=== PATIENT | male | born 1935 | race Caucasian/White ===

== ENCOUNTER 2017-12-01 13:41 | Emergency (ER) | payer MEDICARE ==
--- NOTE | 2017-12-01 14:19 | ED ---
Abdominal Pain/Male - HPI Summary HPI Summary: This is kraig Munoz documenting for attending Nika Duran M.D. This patient is an 82 year old M presenting to [facility] accompanied by Angela, his , with a chief complaint of chest pain for past 4 days. PMHx recently started doxycycline for Lyme disease, GERD. Meds: Rx omeprazole, allergy shots, doxycycline (started yesterday 11/30/17). Pt endorses suprapubic pain (3/10), left anterior CP at 9/10 when symptomatic (denies current sx), constipation, burping, nausea. He denies emesis, ability to pass flatus, and hematochezia. Flatus alleviates sx and inability aggravates. He notes that his CP, when present, is more painful than his abd pain. Pt notes his sx are worse at night. He notes noticed that his last BM small, virtually nothing this AM; his last real one 3 days ago. SHx hernia repairs, several: including inguinal and umbilical hernias. Pt stated he was supposed to have surgery for basal cell in right leg tomorrow but he postponed it. FHx CA. Pt was sent in by Dr. Roy, who called ahead with info, with concern for possible small bowel obstruction, which pt has had in the past due to his pain and inability to pass flatus. - History of Current Complaint Chief Complaint: EDAbdPain Stated Complaint: GI ISSUE Time Seen by Provider: 12/01/17 13:52 Hx Obtained From: Patient, Other: - Dr. Roy Onset/Duration: Sudden Onset, Lasting Days, Still Present Timing: Intermittent - Worse at night Severity Initially: Moderate Severity Currently: Mild Pain Intensity: 2 Pain Scale Used: 0-10 Numeric Location: Epigastric, Suprapubic Radiates: Yes Radiates to: Chest Character: Sharp Aggravating Factor(s): Other: - Night, inability to pass flatus. Alleviating Factor(s): Other: - day time, passing flatus Associated Signs And Symptoms: Positive: Chest Pain, Constipation, Nausea. 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,on doxycycline 11/2017 Endocrine/Hematology History: Denies: Hx Diabetes Cardiovascular History: Reports: Hx Angina, Hx Hypercholesterolemia Denies: Hx Coronary Artery Disease, Hx Hypertension, Hx Myocardial Infarction , Hx Valvular Heart Disease Respiratory History: Reports: Hx Seasonal Allergies Denies: Hx Asthma, Hx Chronic Obstructive Pulmonary Disease (COPD) GI History: Reports: Hx Gastroesophageal Reflux Disease - ON MEDICATION FOR Sensory History: Reports: Hx Cataracts, Hx Hearing Aid - BILATERAL Denies: Hx Contacts or Glasses, Hx Legally Blind, Hx Deafness Opthamlomology History: Reports: Hx Cataracts Denies: Hx Contacts or Glasses, Hx Legally Blind EENT History: Denies: Hx Deafness Psychiatric History: Denies: Hx Schizophrenia - Cancer History Cancer Type, Location and Year: Basal cell carcinoma R lower eyelid - Surgical History Surgery Procedure, Year, and Place: Basal cell carcinoma removed R lower eyelid 12/2006, reconstruction of moh eyelid defect with skin graft from neck 12/2006. HERNIA REPAIRS: inguinal and umbilical. 2 OTHER PROCEDURES FOR SQUAMOUS CELL CARCINOMA'S-OHIO Hx Anesthesia Reactions: No Infectious Disease History: Yes - Lyme disease Nov 2017 Infectious Disease History: Reports: History Other Infectious Disease - Lyme disease Denies: Traveled Outside the [place] in Last 30 Days - Family History Known Family History: Positive: Other - cancer - Social History Occupation: Retired Lives: With Family Alcohol Use: None Alcohol Amount: gave it up Substance Use Type: Reports: None Smoking Status (MU): Former Smoker Amount Used/How Often: X 5 YEARS Review of Systems Negative: Fever Positive: Chest Pain Respiratory: Negative Gastrointestinal: Other - (+) Burping Positive: Abdominal Pain, Nausea. Negative: Vomiting, Diarrhea, Other - neg melena,neg hematochezia Positive: no symptoms reported Positive: Other - basal cell right leg Neurological: Negative Psychological: Normal All Other Systems Reviewed And Are Negative: Yes Physical Exam - Summary Physical Exam Summary: Appearance: Well-appearing, no pain distress, well-nourished Skin: Warm, color reflects adequate perfusion, dry, skin lesion right lower leg and biopsy site of skin lesion Head: Normal Head/Face inspection, atraumatic Eyes: Conjunctiva clear ENT: Normal inspection Neck: Supple, no nodes, no JVD Respiratory: Lungs clear, normal breath sounds, no respiratory distress Cardio: RRR, No murmur, pulses normal, brisk capillary refill Abdomen: Soft, minimal diffuse tenderness, no masses, no guarding, no rebound Bowel sounds: distant but present Musculoskeletal: Strength Intact/ROM intact, no calf tenderness, no edema. 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 Triage Information Reviewed: Yes Vital Signs On Initial Exam: Initial Vitals Temp Pulse Resp BP Pulse Ox 97.5 F 81 16 125/56 100 12/01/17 13:50 12/01/17 13:50 12/01/17 13:50 12/01/17 13:50 12/01/17 13:50 Vital Signs Reviewed: Yes Diagnostics - Vital Signs Vital Signs Temp Pulse Resp BP Pulse Ox 12/01/17 14:07 81 99 12/01/17 14:05 77 136/63 97 12/01/17 13:50 97.5 F 81 16 125/56 100 - Laboratory Result Diagrams: 12/01/17 15:17 12/01/17 15:16 Lab Statement: Any lab studies that have been ordered have been reviewed, and results considered in the medical decision making process. - Radiology CXR Xray Interpretation: No Acute Changes Radiology Interpretation Completed By: Radiologist - Hyperinflation; no evidence for acute finding. - CT A/P CT Interpretation: Positive (See Comments) CT Interpretation Completed By: Radiologist - Bochdalek hernia of the right hemidiaphragm. No abnormal masses or fluid collections are noted. The prostate is enlarged. No definite bowel obstruction is noted. Dr. Duran has reviewed this report. - EKG 1437 Cardiac Rate: NL - 70 EKG Rhythm: 1st Degree HB ST Segment: Normal Ectopy: None EKG Interpretation: 1st degree AVB, RBBB, nl QTc, axis 33, no acute changes. EKG Comparison: No Significant Change - c/w 10/18/12 Re-Evaluation - Re-Evaluation First Eval Re-Evaluation Time: 17:40 Change: Unchanged Comment: no chest pain, no abd pain. not passing flatus. awaiting CT report. Second Eval Change: Improved Comment: Pt is pain free. No vomiting in the ED. Has not passed flatus. Given CT results including notification of Bochdalek hernia. Discussed and questions answered. Pt and agree to discharge. Abdominal Pain Fem Course/Dx - Course Course Of Treatment: 82 yo M on doxycycline for new diagnosis of Lyme disease presents with chest pain, abd pain, nausea, constipation and inability to pass flatus, for evaluation of possible small bowel obstruction, sent by Dr. Roy , who called ahead with information about the pt. EKG: nl sinus 70 BPM, 1st degree AVB, RBBB, axis 33, nl QTc, no acute changes, no change when c/w . CXR reveals hyperinflation; no evidence for acute finding. CT abdomen and pelvis with oral and IV contrast reveals a Bochdalek hernia of the right hemidiaphragm. No abnormal masses or fluid collections are noted. The prostate is enlarged. No definite bowel obstruction is noted. The Bochdalek hernia was discussed with Dr. Austin by phone and explained to pt and his . Pt had no vomiting in the ED, did not require pain medication, and had unchanged EKG and normal troponin, so was discharged for continued treatment of his Lyme disease as an outpatient and further evaluation of his symptoms as an outpatient by Dr. Roy. - Diagnoses Differential Diagnosis/HQI/PQRI: Abdominal Aortic Aneurysm, Bowel Obstruction, Constipation, Diverticulitis, Ischemic Bowel, Pneumonia, Urinary Tract Infection Provider Diagnoses: Chest pain, Abdominal pain, Lyme disease, Bochdalek hernia Discharge - Sign-Out/Discharge Documenting (check all that apply): Patient Departure - discharge - Discharge Plan Condition: Stable Disposition: HOME Patient Education Materials: Lyme Disease (ED), Abdominal Pain (ED) Referrals: Bunny Roy MD [Primary Care Provider] - 2 Days Additional Instructions: We have given you a copy of your labs and studies today. We did not diagnose a bowel obstruction. Dr. Austin the radiologist diagnosed a Bochdalek hernia, which has been present in the past, which is a diaphragmatic hernia with some fat in it, which he does not believe is clinically significant. Dr. Duran discussed this with him personally. That hernia is on the right side, so it does not explain your left chest discomfort. We did not see any sign of a heart attack based on your EKG and your troponin level. Dr. Duran feels it is safe to continue the doxycycline as directed. There was no hidden blood in your stool on a rectal exam. Follow up with Dr. Roy in 2 days. Return to the ER if you have any new or worsening symptoms. - Billing Disposition and Condition Condition: STABLE Disposition: Home
[2017-12-01] MEDS ORDERED: NS 0.9% 1000 ML* 1,000 ML IV ONE (14:26)
[2017-12-01 15:25] LABS: ABS Basophils 0.1 10^3/ul (0-0.2); ABS Eosinophils 0.1 10^3/ul (0-0.6); ABS Lymphocytes 1.3 10^3/ul (1.0-4.8); ABS Monocytes 0.4 10^3/ul (0-0.8); ABS Nucleated RBC 0 10^3/ul; Eosinophil % 1.4 % (0-6); Hematocrit 38 % (42-52); Hemoglobin 12.8 g/dl (14.0-18.0); Lymphocyte % 21.8 % (25-47); Mean Corpuscular HGB Conc 34 g/dl (31-36); Mean Corpuscular Hemoglobin 31 pg (27-31); Mean Corpuscular Volume 92 fL (80-94); Mean Platelet Volume 6.6 um3 (7.4-10.4); Nucleated Red Blood Cells % 0; Platelet Count 304 10^3/ul (150-450); Red Cell Distribution Width 14 % (10.5-15); White Blood Count 5.9 10^3/ul (3.5-10.8)
[2017-12-01 15:34] LABS: INR 0.92 (0.77-1.02)
[2017-12-01 15:48] LABS: EGFR Non-African American 81.4 (>60)
--- NOTE | 2017-12-01 15:50 | RAD ---
HISTORY: chest pain, abd pain COMPARISONS: None VIEWS: 1: frontal portable view of the chest at 2:55 PM FINDINGS: LINES AND TUBES: None. CARDIOMEDIASTINAL SILHOUETTE: The cardiomediastinal silhouette is normal for portable technique. PLEURA: The costophrenic angles are sharp. No pleural abnormalities are noted. LUNG PARENCHYMA: There is hyperinflation. ABDOMEN: The upper abdomen is clear. There is no subphrenic gas. BONES AND SOFT TISSUES: No bone or soft tissue abnormalities are noted. IMPRESSION: HYPERINFLATION. NO ACTIVE CARDIOPULMONARY DISEASE.
[2017-12-01] MEDS ORDERED: Iodixanol* (CONTRAST) 320 MG/ML 100 ML SDV IV ONE (16:00)
[2017-12-01 16:37] LABS: Urine Appearance Clear; Urine Blood 1+ (Negative); Urine Color Yellow; Urine Ketones Negative (Negative); Urine Protein Negative (Negative); Urine Red Blood Cell Trace(0-2/hpf) (Absent); Urine Specific Gravity 1.011 (1.010-1.030); Urine Urobilinogen Negative (Negative); Urine White Blood Cell Trace(0-5/hpf) (Absent)
--- NOTE | 2017-12-01 17:47 | RAD ---
Indication: Abdominal pain, small bowel obstruction. Contrast: Administered 82.0 ml of VISAPAQUE 320 mg/ml CT of the abdomen and pelvis was performed after oral and IV contrast demonstration. Coronal and sagittal reconstructed images were obtained. The lung bases demonstrate some scarring in the lingula. No focal nodules are noted. No pleural fluid is identified. A right-sided Bochdalek hernia containing fat is noted. Liver is normal in size. No focal lesions or intrahepatic ductal dilatation is noted. The gallbladder demonstrates no calcified gallstones. The pancreas demonstrates no mass or pancreatic duct dilatation. The common duct is not dilated. The pancreas demonstrates no mass or pancreatic duct dilatation. No adrenal masses noted. The kidneys demonstrate symmetric nephrograms without focal lesions. No hydronephrosis of either kidney is noted. Atherosclerotic aorta is noted. No evidence of abdominal aortic aneurysm is noted. Inferior vena cava is unremarkable. No retroperitoneal lymphadenopathy is noted. CT of the pelvis demonstrates no dilated loops of bowel. Urinary bladder is unremarkable. The prostate is enlarged. The colon is filled with stool. Small bowel demonstrates no abnormal dilatation. Colon is filled with stool. The bony structures are grossly unremarkable. IMPRESSION: Bochdalek hernia of the right hemidiaphragm. No abnormal masses or fluid collections are noted. The prostate is enlarged. No definite bowel obstruction is noted.
[2017-12-01 18:37] VITALS: BP 163/78
== END 2017-12-01 18:37 | disposition home or self-care (01) ==
LOC: ED 13:41
DX: R07.9 Chest pain, unspecified (principal); I44.0 Atrioventricular block, first degree; I45.10 Unspecified right bundle-branch block; K44.9 Diaphragmatic hernia without obstruction or gangrene; R10.9 Unspecified abdominal pain; A69.20 Lyme disease, unspecified; K21.9 Gastro-esophageal reflux disease without esophagitis; Z79.899 Other long term (current) drug therapy; Z87.891 Personal history of nicotine dependence; Z80.9 Family history of malignant neoplasm, unspecified
CPT/HCPCS: 36415; 71045; 74177; 80053; 81003; 81015; 82140; 82150; 82272; 82550; 83605; 83690; 83735; 83880; 84484; 85025; 85610; 85730; 86140; 87086; 93005; 96360; 96361; 99283; Q9967